=== PATIENT | female | born 1960 | race Caucasian/White ===

== ENCOUNTER 2020-04-14 15:06 | Outpatient (CLI) | payer OTHER, SELFPAY ==
--- NOTE | ~2020-04-14 | MM_ITS ---
EXAMINATION: MM screening [place] [facility] w [facility] HISTORY: Screening mammogram TECHNIQUE: Craniocaudal and mediolateral oblique 3-D tomosynthesis images were obtained and synthetic 2-D images were generated. CAD analysis was submitted and interpreted. COMPARISON: No prior mammogram is available for comparison at this institution. BREAST PARENCHYMAL COMPOSITION: There are scattered areas of fibroglandular density. FINDINGS: There is a biopsy marker on the right; history of prior benign right breast biopsy in 2018. There is no evidence of suspicious mass, calcification, or architectural distortion to suggest malig mari in either breast. There has been no suspicious interval change. IMPRESSION: 1. No mammographic evidence of malignancy. 2. Recommend routine screening mammography in one year. BI-RADS Category 2: Benign finding(s). Reviewed, dictated and finalized at location A.
== END 2020-04-14 15:07 | disposition home or self-care (01) ==
LOC: ANHIMG 15:12
PROVIDERS: PCP Family Medicine; Visit Provider Physician Assistant
DX: Z12.31 Encounter for screening mammogram for malignant neoplasm of breast (principal)
CPT/HCPCS: 77063; 77067

== ENCOUNTER 2020-08-21 10:00 | Outpatient (RCR) | payer OTHER, SELFPAY ==
--- NOTE | 2020-07-22 11:30 | PTOPEVAL ---
PHYSICAL THERAPY EVALUATION Thank you for referring Jen Pandya to [facility].? Jen was evaluated for her diagnosis of chronic cervical pain. The patient is scheduled to be seen for therapy? 2 x/week for 4 weeks. Please review, sign, date and return this plan of care CHILO. I agree with and certify that the following plan of care is medically necessary. Referring Physician Date Attending Provider: Rosmery Gentile, MD *PT Outpatient Evaluation Start: 07/22/20 09:57 Freq: Status: Active Protocol: Document 07/22/20 09:57 [facility] (Rec: 07/22/20 11:16 [facility] [id number]) Assessment Status Evaluation Evaluation Information Problem Diagnosis neck pain (chronic) Onset chronic Cause no new event Additional Evaluation Detail The patient has a hx of cervical fusion 2018 due to herniated discs/nerve impingement with pain in neck/ arms. The patient never got relief from arm pain. The patient had a CT scan later that showed bent screws. The patient never did therapy at any point. The patient has gotten worse over time so the patient saw the MD recently for the increased pain. The patient also has trouble holding onto things/drops them. Diagnostic Tests Other Tests For This Problem Yes: ct-bent screws Prior Level of Function Activity Level (Last 3 Months) Occupation on disability Hand Dominance Right Activity of Daily Living Ability Independent Indoor/Home Mobility Independent Community Mobility Independent Stairs Ability Independent Functional Cognition (Planning, Shopping Independent , Taking Medications) Cooking Yes Cleaning Yes Laundry Yes Shopping Yes Driving No Medications Home Meds (Include: OTC, RX, Vitamins, metformin, glipizide, Herbals, Dose, Route,and Frequency) pregablin, diclofenac, Query Text:Home Med Entries Will No cyclobenzaprine, atorvastatin, Longer Recall From Past Visits. Home hydrazine, amblodipine, vit. Meds Must Be Re-entered With Each Visit. D Comments Additional Prior Level of Function patient modifies tasks to Comments accomplish due to neck and arm plus back pain (chronic) Pain Assessment
--- NOTE | 2020-08-21 10:35 | PTOPEVAL ---
PHYSICAL THERAPY DISCHARGE SUMMARY Thank you for referring Jen Pandya to [facility].? The patient has been seen 8 visits for her dx of cervical pain/radiculopathy. The patient has partially met her goals and is peaked with skilled PT needs at this time. PT discontinued. Please review, sign, date and return this plan of care. I agree with and certify the following plan of care. Referring Physician Date Attending Provider: Rosmery Gentile, MD *PT Outpatient Discharge Start: 07/22/20 09:57 Freq: Status: discharge Protocol: Document 08/21/20 09:59 [facility] (Rec: 08/21/20 10:34 [facility] [id number]) Assessment Status Discharge Evaluation Information Problem Diagnosis neck pain (chronic) Onset chronic Cause no new event Additional Evaluation Detail The patient has been to therapy and reports overall, the pain is still in her neck but she is getting her strength back in her arms. The patient is doing her exercises and has no trouble with them now. The patient has less trouble holding onto things/drops them less. Pain Assessment Timing of Pain Assessment Timing of Pain Assessment Assessment Pain Scale Pain Scale Used Numeric (1 - 10) Self Report Pain Assessment Bilateral Arm(s) Reported Pain Level 0 Radicular Pain Location no current numbness but had some earlier this am Pain Frequency Intermittent Neck Reported Pain Level 8 Pain Description Burning,Sharp Pain Frequency Acute,Chronic Other Pain Description only increased pain due to overstretching per pt. Pain Aggravating Factors Lifting Pain Score Pain Score 0,8: Self Report Interventions Used Interventions Used By Clinicians Education,Electrical Stimulation,Exercise,Heat, Ultrasound Pain Relief Interventions Used By Exercise,Heat,Position Change, Patient Massage Modalities Cervical and Lumbar ROM Cervical ROM Cervical Flexion (0-60) 60 Query Text:Active in Degrees Cervical Extension (0-70) 35 Query Text:Active in Degrees Cervical Lateral Flexion Right (0-50) 55 Query Text:Active in Degrees Cervical Lateral Flexion Left (0-50) 50 Query Text:Active in Degrees Cervical Rotation Right (0-90) 60 Query Text:Active in Degrees Cervical Rotation Left (0
== END 2020-08-21 12:05 | disposition home or self-care (01) ==
LOC: ANHPT 10:00
PROVIDERS: PCP Family Medicine; Visit Provider Family Medicine
DX: M54.2 Cervicalgia (principal)
CPT/HCPCS: 97014; 97032; 97110; 97161; G0283

== ENCOUNTER 2020-11-03 08:02 | Outpatient (CLI) | payer OTHER, SELFPAY ==
--- NOTE | ~2020-11-03 | MR_ITS ---
EXAMINATION: MR cervical spine wo/w con EXAM DATE: 11/03/2020 09:43 INDICATION: History neck surgery. Neck pain going down both arms. TECHNIQUE: Multi-sequential, multiplanar MR images of the cervical spine were obtained without contra st. Axial T2, axial T2 MERGE sequence. Sagittal T1, T2, T2 fat saturation images also obtained. Axi al T1 weighted sequence. Patient was then injected with 14 mL Multihance intravenous contrast and re imaged. Postcontrast axial and sagittal T1-weighted fat saturation sequences were obtained. There ar e no prior studies for comparison. FINDINGS: There is anterior and interbody fusion C4-7. Vertebral body and disc heights are well-tiarra ntained. The spinal cord signal intensity and intrinsic morphology is normal. Cervicomedullary juncti on is normal in appearance. There are no suspicious marrow signal abnormalities. Paraspinal soft tiss ue is unremarkable. Increased signal intensity at the C3 vertebral body on postcontrast sequence is suspected to be artifactual loss of fat saturation; no signal abnormality on the precontrast T1 and T 2 sequences in this vertebral body. Level by level evaluation: C2-C3: Disc does not extend beyond the endplate margin. Uncovertebral joint arthropathy: None. Facet joint arthropathy: Moderate bilateral. Neural foraminal stenosis: No stenosis. Central canal stenosis: No stenosis. C3-C4: Disc does not extend beyond the endplate margin. Uncovertebral joint arthropathy: Mild bilateral. Facet joint arthropathy: Moderate to severe bilateral. Neural foraminal stenosis: Moderate left, mild right. Central canal stenosis: No stenosis. C4-C5: This level is fused. Uncovertebral joint arthropathy: Moderate left, mild to moderate right. Facet joint arthropathy: Mild bilateral. Neural foraminal stenosis: Moderate left, mild to moderate right. Central canal stenosis: No stenosis. C5-C6: This level is fused. Uncovertebral joint arthropathy: Moderate bilateral. Facet joint arthropathy: Mild to moderate bilateral. Neural foraminal stenosis: Mild to moderate right, mild left. Central canal stenosis: No stenosis. C6-C7: There is a mild diffuse disc bulge. Uncovertebral joint arthropathy: Moderate to severe left, moderate right. Facet joint arthropathy: Moderate bilateral. Neural foraminal stenosis: Moderate to severe left, moderate right. Central canal stenosis: Mild. C7-T1: Disc does not extend beyond the endplate margin. Uncovertebral joint arthropathy: Mild bilateral. Facet joint arthropathy: Mild bilateral. Neural foraminal stenosis: No stenosis. Central canal stenosis: No stenosis. IMPRESSION: 1. Cervical fusion C4-7. 2. Multilevel spondylosis as detailed above, with the left C6-7 and C4-5 levels the most narrowed on the exam. Reviewed, dictated and finalized at location A. IMPRESSION: 1. Cervical fusion C4-7. 2. Multilevel spondylosis as detailed above, with the left C6-7 and C4-5 level s the most narrowed on the exam.
[2020-11-03 09:03] LABS: Estimated Glomerular Filt Rate > 60
== END 2020-11-03 08:03 | disposition home or self-care (01) ==
PROVIDERS: PCP Family Medicine; Referring Provider Nurse Practitioner Family; Visit Provider Family Medicine
DX: M47.813 Spondylosis without myelopathy or radiculopathy, cervicothoracic region (principal); Z98.1 Arthrodesis status; M48.03 Spinal stenosis, cervicothoracic region
CPT/HCPCS: 72156; A9577

== ENCOUNTER 2020-12-30 08:31 | Outpatient (CLI) | payer OTHER, SELFPAY ==
--- NOTE | 2020-12-30 12:21 | NEURO_ITS ---
PATIENT NUMBER: [id number] IMPRESSION: # Complains of pain and numbness of hands # Bilateral Carpal Tunnel Syndrome of moderate severity. # Left ulnar nerve entrapment across the elbow of moderate severity and right of mild severity. # Normal needle exam. Nerve Conduction Studies Anti Sensory Summary Table Stim Site NR Peak (ms) P-T Amp (?V) Site1 Site2 Delta-P (ms) Dist (cm) Keith (m/s) Left Median Anti Sensory (2-3nd Digit) Wrist 3.6 32.6 Wrist 2-3nd Digit 3.6 14.0 39 Wrist 4.0 17.8 Wrist 2-3nd Digit 3.6 14.0 39 Right Median Anti Sensory (2-3nd Digit) Wrist 3.9 8.8 Wrist 2-3nd Digit 3.9 14.0 36 Wrist 4.3 4.6 Wrist 2-3nd Digit 3.9 14.0 36 Left Radial Anti Sensory (Base 1st Digit) Wrist 1.7 23.5 Wrist Base 1st Digit 1.7 0.0 Right Radial Anti Sensory (Base 1st Digit) Wrist 2.2 18.9 Wrist Base 1st Digit 2.2 0.0 Left Ulnar Anti Sensory (5th Digit) Wrist 2.3 17.2 Wrist 5th Digit 2.3 14.0 61 Right Ulnar Anti Sensory (5th Digit) Wrist 2.3 23.3 Wrist 5th Digit 2.3 14.0 61 Motor Summary Table Stim Site NR Onset (ms) O-P Amp (mV) Site1 Site2 Delta-0 (ms) Dist (cm) Keith (m/s) Left Median Motor (Abd Poll Brev) Wrist 5.5 1.5 Elbow Wrist 4.5 26.0 58 Elbow 10.0 1.1 Right Median Motor (Abd Poll Brev) Wrist 5.9 3.3 Elbow Wrist 5.0 27.0 54 Elbow 10.9 3.5 Left Ulnar Motor (Abd Dig Minimi) Wrist 2.0 6.8 A Elbow Wrist 5.1 25.0 49 A Elbow 7.1 2.6 B Elbow Wrist 4.7 22.0 47 B Elbow 6.7 2.0 Right Ulnar Motor (Abd Dig Minimi) Wrist 2.3 6.2 A Elbow Wrist 5.2 27.0 52 A Elbow 7.5 5.4 B Elbow Wrist 3.5 20.0 57 B Elbow 5.8 2.8 F Wave Studies NR F-Lat (ms) L-R F-Lat (ms) Left Median (Mrkrs) (Abd Poll Brev) 29.44 0.17 Right Median (Mrkrs) (Abd Poll Brev) 29.28 0.17 Left Ulnar (Mrkrs) (Abd Dig Min) 28.20 2.21 Right Ulnar (Mrkrs) (Abd Dig Min) 25.99 2.21 EMG Side Muscle Nerve Root Ins Act Fibs Amp Dur Recrt Comment Right 1stDorInt Ulnar C8-T1 Nml Nml Nml Nml Nml Right Ext Indicis Radial (Post Int) C7-8 Nml Nml Nml Nml Nml Right Ext Digitorum Radial (Post Int) C7-8 Nml Nml Nml Nml Nml Right BrachioRad Radial C5-6 Nml Nml Nml Nml Nml Right PronatorTeres Median C6-7 Nml Nml Nml Nml Nml Right Abd Poll Brev Median C8-T1 Nml Nml Nml Nml Nml Left 1stDorInt Ulnar C8-T1 Nml Nml Nml Nml Nml Left Ext Indicis Radial (Post Int) C7-8 Nml Nml Nml Nml Nml Left Ext Digitorum Radial (Post Int) C7-8 Nml Nml Nml Nml Nml Left BrachioRad Radial C5-6 Nml Nml Nml Nml Nml Left PronatorTeres Median C6-7 Nml Nml Nml Nml Nml Left Abd Poll Brev Median C8-T1 Nml Nml Nml Nml Nml MTDD
== END 2020-12-30 08:32 | disposition home or self-care (01) ==
PROVIDERS: PCP Family Medicine; Referring Provider Nurse Practitioner Family; Visit Provider Plastic Surgery
DX: R53.1 Weakness (principal); R20.0 Anesthesia of skin; M79.641 Pain in right hand; G56.03 Carpal tunnel syndrome, bilateral upper limbs; G56.22 Lesion of ulnar nerve, left upper limb
CPT/HCPCS: 95886; 95911

== ENCOUNTER 2021-03-10 09:30 | Outpatient (RCR) | payer OTHER, SELFPAY ==
--- NOTE | 2021-01-29 10:41 | PTOPEVAL ---
PHYSICAL THERAPY EVALUATION Thank you for referring Jen Pandya to [facility].? Jen was evaluated for the dx of low back pain/radiculopathy. The patient is scheduled to be seen for therapy? 2 x/week for 6 weeks. Please review, sign, date and return this plan of care CHILO. I agree with and certify that the following plan of care is medically necessary. Referring Physician Date Attending Provider: Haylee Unger, BELEN *PT Outpatient Evaluation Start: 01/29/21 09:37 Freq: Status: Active Protocol: Document 01/29/21 09:37 [facility] (Rec: 01/29/21 10:25 [facility] [id number]) Therapy Assessment Status Assessment Status Assessment Status Evaluation Evaluation Information Problem Diagnosis low back pain Onset 3 weeks ago Cause no new injury Additional Evaluation Detail The patient has had back pain for about 16 years and has had injections in the past. When the pain flared recently, she received an injection again but the relief only lasted 2 days. The patient currently has pain at the sacrum and it radiates to the hips. The pain is worse with sitting/riding in a car for length of time, walking, stairs. Diagnostic Tests X-Rays For This Problem Yes MRI For This Problem Yes: DDD/OA lumbar spine Prior Level of Function Activity Level (Last 3 Months) Occupation on disability Hand Dominance Right Activity of Daily Living Ability Independent Indoor/Home Mobility Independent Community Mobility Independent Stairs Ability Independent Functional Cognition (Planning, Shopping Independent , Taking Medications) Cooking Yes Cleaning No Laundry Yes Shopping No Driving No Home Setting Home Type Basement Apartment Environmental Barriers Railing, Bilateral,Stairs, Greater than 4 Living Situation With Relatives Support Available Local Family Support,Neighbor/ Friend Support Pain Assessment Timing of Pain Assessment Timing of Pain Assessment Assessment Pain Scale Pain Scale Used Numeric (1 - 10) Self Report Pain Assessment Left Hip(s) Reported Pain Level 0 Pain Description Sharp,Stabbing,Tender on
--- NOTE | 2021-02-22 09:36 | PCPTNOTE ---
Patient called & cancelled scheduled appointment this date due to transportation.
--- NOTE | 2021-02-26 16:06 | PCPTNOTE ---
Patient called to cancel due not having transportation.
--- NOTE | 2021-03-10 10:15 | PTOPEVAL ---
PHYSICAL THERAPY DISCHARGE Thank you for referring Jen Pandya to [facility].? The patient has completed 10 visits for the dx of low back pain. Goals are partially met. DC PT. Please review, sign, date and return this plan of care CHILO. I agree with and certify that the following plan. Referring Physician Date Attending Provider: Haylee Unger, FINISHING TECHNICIAN-BC *PT Outpatient Discharge Start: 01/29/21 09:37 Freq: Status: Active Protocol: Document 03/10/21 09:20 [facility] (Rec: 03/10/21 09:42 [facility]V [id number]) Evaluation Information Problem Diagnosis low back pain Cause no new injury Additional Evaluation Detail The patient reports feeling a little better and recently got a new prescription and her pain is much better with the new meds. The patient reports continued pain at sacral area and the exercises don't seem to help fix her pain, but she does them. The patient has an appt for the pain mgmt MD on the . The patient is also having carpal tunnel surgery on the of this month. Pain Assessment Timing of Pain Assessment Timing of Pain Assessment Assessment Pain Scale Pain Scale Used Numeric (1 - 10) Self Report Pain Assessment Left Hip(s) Reported Pain Level 3 Pain Description Aching,Soreness Pain Frequency Chronic Lower Back Reported Pain Level 4 Pain Description Aching,Soreness Radicular Pain Location into right hip Pain Frequency Chronic Pain Aggravating Factors Weight Bearing/Standing Pain Score Pain Score 3,4: Self Report Interventions Used Interventions Used By Clinicians Electrical Stimulation,Heat, Joint Mobilization,Manual Therapy Techniques Pain Relief Interventions Used By Heat,Inactivity/Rest, Patient Medication Cervical and Lumbar ROM Lumbar ROM Lumbar Flexion Active Ankle Query Text:Hands to: Lumbar Extension (0-40) 40 Query Text:Active in Degrees Lumbar Lateral Flexion Right (0-40) 35 Query Text:Active in Degrees Lumbar Lateral Flexion Left (0-40) 40 Query Text:Active in Degrees Lateral Rotation Right (0-45) 45 Query Text:Active in Degrees Lateral Rotation Left (0-45) 45 Query Text:Active in Degrees Cervical and Lumbar Muscle Testing
== END 2021-03-10 14:40 | disposition home or self-care (01) ==
LOC: ANHPT 09:30
PROVIDERS: PCP Family Medicine; Visit Provider Nurse Practitioner Family
DX: M54.5 Low back pain (principal); M54.16 Radiculopathy, lumbar region
CPT/HCPCS: 97014; 97110; 97140; 97162; G0283

== ENCOUNTER 2021-03-23 09:07 | Outpatient (CLI) | payer OTHER, SELFPAY ==
[2021-03-23 11:09] LABS: Anion Gap 9 mmol/L (8-16); Blood Urea Nitrogen 20 mg/dL (7-17); Calcium 9.6 mg/dL (8.4-10.2); Carbon Dioxide 25 mmol/L (22-30); Chloride 104 mmol/L (98-107); Estimated Glomerular Filt Rate > 60; Glucose 99 mg/dL (65-110); Potassium 3.6 mmol/L (3.4-5.0); Sodium 138 mmol/L (137-145)
== END 2021-03-23 09:08 | disposition home or self-care (01) ==
PROVIDERS: Anesthesiology; PCP Family Medicine; Visit Provider Plastic Surgery
DX: Z01.812 Encounter for preprocedural laboratory examination (principal); E11.9 Type 2 diabetes mellitus without complications
CPT/HCPCS: 36415; 80048

== ENCOUNTER 2021-03-24 00:27 | Day surgery (SDC) | payer OTHER, SELFPAY ==
[2021-03-17 17:49] VITALS: BMI 31.1
--- NOTE | 2021-03-23 13:44 | WPDANESEPPF ---
Anes - Initial Pre Proc Eval Procedure: Operation Date: 03/24/21 09:00 Proposed Procedures p Right Open Carpal Tunnel Release - Elfego Carreno MD Date/Time: 03/23/21 13:44 Surgeon: Elfego Carreno MD Pre Op Diagnosis: right carpal tunnel syndrome Patient Data Age: 61 Gender: F Height: 1.57 m Weight: 77.11 kg Allergies Allergy/AdvReac Type Severity Reaction Status Date / Time No Known Allergies Allergy Verified 03/17/21 17:54 Home Medications Medication Instructions Recorded Confirmed Type amlodipine 5 mg PO DAILY 03/17/21 03/17/21 History atorvastatin 20 mg PO DAILY 03/17/21 03/17/21 History cyclobenzaprine 10 mg PO TID PRN 03/17/21 03/17/21 History diclofenac sodium 75 mg PO BID 03/17/21 03/17/21 History empagliflozin [Jardiance] 25 mg PO DAILY 03/17/21 03/17/21 History ergocalciferol (vitamin D2) 1,250 mcg PO DAILY 03/17/21 03/17/21 History glipizide 10 mg PO BID 03/17/21 03/17/21 History hydralazine 25 mg PO DAILY 03/17/21 03/17/21 History metformin 500 mg PO BID 03/17/21 03/17/21 History pregabalin 300 mg PO BID 03/17/21 03/17/21 History tizanidine 4 mg PO DAILY 03/17/21 03/17/21 History Patient hx anesthesia problems: none Family hx anesthesia problems: none PMFSH Past Medical History Medical History (Updated 03/23/21 @ 13:45 by Kenneth Pierre DO) Diabetes type 2, controlled Hyperlipidemia Hypertension Surgical History Surgical History (Updated 03/23/21 @ 13:45 by Kenneth Pierre DO) History of cervical spinal surgery pin/plates 2017 History of tubal ligation Social History Social History Smoking packs per day: 1 Smoking cigarettes per day: 20.0 Years smoked: 48 Smoking pack-years: 48.00 Smoking status: Former smoker Tobacco type: cigarettes Last use: 01/12/21 Living arrangements: alone Spiritual care concerns: No Anes - Eval Final PreProcedure Day of Procedure 03/23/21 13:44 Patient weight: obese Heart: regular rate and rhythm Lungs: clear to auscultation and normal air movement Airway: Mallampati scale class II Neurological: alert and oriented Last oral intake: >/= 8 hours ASA classification: III Emergent: no Anesthetic plan: proceed Anesthesia type and monitoring: general GIVS and standard monitoring Informed Consent: The patient's anesthetic plan and its attendant risks and benefits were discussed with the patient/family/POA. Questions were solicited and answers provided to the satisfaction of the patient/family/POA.
[2021-03-24] MEDS: LACTATED RINGERS 1,000 ML 30 ML IV CONT ×2 (07:50→09:05)
[2021-03-24 08:00] LABS: Glucose Point of Care 110 mg/dl (65-105)
[2021-03-24 08:23] VITALS: BP 108/71; PULSE 57; RESP 20; TEMP 36.3; O2SAT 100
--- NOTE | 2021-03-24 08:32 | WPDHPUPDATE1 ---
History and Physical Update Update Date/Time: 03/24/21 08:32 History and Physical has been reviewed, including an updated exam of the patient. There are NO changes in the patient's condition. Risks, benefits, and alternatives have been discussed and questions answered. Patient agrees to proceed with procedure.
[2021-03-24] MEDS: KETOROLAC 15 MG/ML VIAL (*BKC) IV PUSH (08:45)
[2021-03-24] MEDS: LIDO 1%/EPINEPHRINE/PF 1:200,000 30 ML VIAL 4 ML XX (08:53)
[2021-03-24] MEDS: BACITRACIN/POLYMYXIN B OINT 15 GM TUBE 1 APPLIC TOPICAL (09:00)
[2021-03-24 09:05] VITALS: BP 92/59; PULSE 64; RESP 16; O2SAT 96
[2021-03-24 09:14] LABS: Glucose Point of Care 117 mg/dl (65-105)
--- NOTE | 2021-03-24 09:20 | W.PM.PROC2 ---
Procedure Note - Detailed Date of Procedure 03/24/21 Pre-op Diagnosis right carpal tunnel syndrome Post-op Diagnosis same Procedure Performed Right open carpal tunnel release Surgeon Elfego Carreno MD Anesthesia MAC Indications Right carpal tunnel syndrome failing conservative treatment Description of Procedure The site was marked on the patient's wrist in the holding area. She was taken to the operating room and placed supine on the operating table. A time-out was held and confirmed she was given IV sedation. The extremity was prepped and draped in usual fashion. The site was remarked and infiltrated locally with 1% lidocaine with epinephrine. The tourniquet was inflated to 250 mmHg. Incision was made as marked and dissection was carried bluntly through the subcutaneous tissue to the palmar aponeurosis. This and the carpal ligament were incised with a 15. Blade. Under 3 point retraction the ligament was divided distally and proximally to completely release it. The skin wound was closed with interrupted 5 0 nylon. There was no unusual anatomy noted. She is discharged in stable condition with a prescription for hydrocodone 5/325 number 8 Estimated Blood Loss 0 Tourniquet Time 5 Drains No Packing No Pathology none sent Complications No immediate complications Condition stable Disposition same day
[2021-03-24 09:30] VITALS: BP 90/62; PULSE 60; RESP 16; O2SAT 97
[2021-03-24 09:56] VITALS: BP 113/65; PULSE 54; RESP 16
--- NOTE | 2021-03-24 09:58 | SUR.PHASEII ---
[facility] CALLED FOR PATIENT.
--- NOTE | 2021-03-24 10:25 | SUR.PHASEII ---
[facility] HERE TO TRANSPORT PATIENT HOME.
== END 2021-03-24 10:25 | disposition home or self-care (01) ==
PROVIDERS: PCP Family Medicine; Visit Provider Plastic Surgery
PROC: (CPT 64721; principal; 2021-03-24 09:00)
DX: G56.01 Carpal tunnel syndrome, right upper limb (principal); E11.9 Type 2 diabetes mellitus without complications; Z79.84 Long term (current) use of oral hypoglycemic drugs; I10 Essential (primary) hypertension; E78.5 Hyperlipidemia, unspecified; Z87.891 Personal history of nicotine dependence
CPT/HCPCS: 64721; 82948; A9270; J0131; J1100; J1885; J2250; J2405; J2704; J3010; J7120

== ENCOUNTER 2021-04-16 07:56 | Outpatient (CLI) | payer OTHER, SELFPAY ==
--- NOTE | ~2021-04-16 | MR_ITS ---
EXAMINATION: MR lumbar spine wo [facility] EXAM DATE: 04/16/2021 08:34 INDICATION: Lumbar radiculopathy. TECHNIQUE: Multi-sequential, multiplanar MR images of the lumbar spine were obtained without contrast . Sagittal T1, T2, T2 fat saturation images. Axial T2 weighted images. There is no prior study for comparison. FINDINGS: There is moderate disc disease at L5-S1. The vertebral body and disc heights are otherwise well maintained. The vertebral bodies are aligned in the AP dimension. The conus medullaris terminate s at the L1/2 level and has normal signal intensity and morphology. There are scattered focal signal abnormalities consistent with hemangiomata, otherwise without focal suspicious marrow signal abnorma lities. Level by level evaluation: T12-L1: There is a mild diffuse disc bulge. Facet arthropathy: Mild bilateral. Neural foraminal stenosis: No stenosis. Central canal stenosis: No stenosis. L1-L2: Disc does not extend beyond the endplate margin. Facet arthropathy: Mild bilateral. Neural foraminal stenosis: No stenosis. Central canal stenosis: No stenosis. L2-L3: There is a minimal diffuse disc bulge. Facet arthropathy: Mild to moderate bilateral. Neural foraminal stenosis: No stenosis. Central canal stenosis: No stenosis. L3-L4: There is a mild to moderate diffuse disc bulge. Facet arthropathy: Mild to moderate right, mild left. Neural foraminal stenosis: Mild bilateral. Central canal stenosis: Mild. L4-L5: There is a mild to moderate diffuse disc bulge. Facet arthropathy: Moderate to severe bilateral. Ligamentum flavum enlargement. Neural foraminal stenosis: Mild to moderate right, mild left. Central canal stenosis: Moderate. L5-S1: There is a moderate diffuse disc bulge. Facet arthropathy: Moderate bilateral. Neural foraminal stenosis: Moderate bilateral, right greater than left. Central canal stenosis: Mild to moderate. IMPRESSION: 1. Up to moderate lower lumbar spondylosis. Reviewed, dictated and finalized at location B.
== END 2021-04-16 07:57 | disposition home or self-care (01) ==
PROVIDERS: PCP Family Medicine; Visit Provider Nurse Practitioner Family
DX: M47.26 Other spondylosis with radiculopathy, lumbar region (principal); M54.5 Low back pain
CPT/HCPCS: 72148

== ENCOUNTER 2021-05-27 00:17 | Day surgery (SDC) | payer OTHER, SELFPAY ==
[2021-05-06 15:29] VITALS: BMI 27.4
--- NOTE | 2021-05-13 06:42 | WPDHPUPDATE1 ---
History and Physical Update Update Date/Time: 05/13/21 06:42 History and Physical has been reviewed, including an updated exam of the patient. There are NO changes in the patient's condition. Risks, benefits, and alternatives have been discussed and questions answered. Patient agrees to proceed with procedure.
--- NOTE | 2021-05-20 11:30 | PC.NURSE ---
Pt states no changes in medications or health history since initial interview. New pre-op instructions reviewed with pt. Pt denies any questions at this time.
--- NOTE | 2021-05-27 09:42 | WPDHPUPDATE1 ---
History and Physical Update Update Date/Time: 05/27/21 09:42 History and Physical has been reviewed, including an updated exam of the patient. There are NO changes in the patient's condition. Risks, benefits, and alternatives have been discussed and questions answered. Patient agrees to proceed with procedure.
[2021-05-27 12:05] VITALS: BP 131/87; PULSE 73; RESP 14; TEMP 36.8; O2SAT 99
--- NOTE | 2021-05-27 12:10 | SUR.PREOP ---
1210- Patient reported she had a small hashbrown this morning at 0800 and coffee with sugar at 0600. Reported to Dr. Acharya patient having eaten hashbrown and coffee this AM. Per Dr. Achraya can proceed with procedure scheduled for 1500.
[2021-05-27 12:39] VITALS: BMI 28.0
[2021-05-27] MEDS: LACTATED RINGERS 1,000 ML 30 ML IV CONT (13:10)
[2021-05-27 13:28] LABS: Glucose Point of Care 111 mg/dl (65-105)
--- NOTE | 2021-05-27 14:00 | P.PNAN_ITS ---
Anes - Initial Pre Proc Eval Procedure: Operation Date: 05/27/21 15:00 Proposed Procedures p Right Cubital Tunnel Release - Elfego Carreno MD Date/Time: 05/27/21 14:00 Surgeon: Elfego Carreno MD Pre Op Diagnosis: right ulnar neuropathy Patient Data Age: 61 Gender: F Height: 1.57 m Weight: 69.5 kg Last Vital Signs Temp 98.2 F 05/27/21 12:05 Pulse 73 05/27/21 12:05 Resp 14 05/27/21 12:05 BP 131/87 05/27/21 12:05 Pulse Ox 99 05/27/21 12:05 Allergies Allergy/AdvReac Type Severity Reaction Status Date / Time No Known Allergies Allergy Verified 05/27/21 12:30 Home Medications Medication Instructions Recorded Confirmed Type Jardiance 25 mg PO DAILY 03/17/21 05/20/21 History amlodipine 5 mg PO DAILY 03/17/21 05/27/21 History atorvastatin 20 mg PO DAILY 03/17/21 05/20/21 History cyclobenzaprine 10 mg PO TID PRN 03/17/21 05/20/21 History diclofenac sodium 75 mg PO BID 03/17/21 05/20/21 History ergocalciferol (vitamin D2) 1,250 mcg PO WEEKLY 03/17/21 05/27/21 History glipizide 10 mg PO BID 03/17/21 05/20/21 History hydralazine 25 mg PO DAILY 03/17/21 05/20/21 History metformin 500 mg PO BID 03/17/21 05/20/21 History pregabalin 300 mg PO BID 03/17/21 05/27/21 History tizanidine 4 mg PO DAILY 03/17/21 05/20/21 History Laboratory Tests 05/27/21 13:25 POC Capillary Glucose 111 mg/dl H mg/dl (65-105) Patient hx anesthesia problems: none Family hx anesthesia problems: none Results Review: All pre-operative results and documents have been reviewed as part of the pre-operative evaluation. [facility] Past Medical History Medical History (Updated 03/23/21 @ 13:45 by Kenneth Pierre DO) Diabetes type 2, controlled Hyperlipidemia Hypertension Surgical History Surgical History (Updated 03/23/21 @ 13:45 by Kenneth Pierre DO) History of cervical spinal surgery pin/plates 2017 History of tubal ligation Social History Social History Smoking packs per day: 1.25 Smoking cigarettes per day: 25.0 Years smoked: 47 Smoking pack-years: 58.75 Smoking status: Former smoker Tobacco type: cigarettes Smoking end date: 01/12/21 Alcohol intake: never Substance use: never Substance use type: does not use Last use: 01/12/21 Living arrangements: alone Spiritual care concerns: No Anes - Eval Final PreProcedure Day of Procedure 05/27/21 14:00 Patient weight: overweight Heart: regular rate and rhythm Lungs: clear to auscultation Airway: Mallampati scale class II Neurological: alert and oriented Last oral intake: >/= 8 hours ASA classification: III Emergent: no Anesthetic plan: proceed Anesthesia type and monitoring: general GIVS and standard monitoring Results Review: All pre-operative results and documents have been reviewed as part of the pre-operative evaluation. Informed Consent: The patient's anesthetic plan and its attendant risks and benefits were discussed with the patient/family/POA. Questions were solicited and answers provided to the satisfaction of the patient/family/POA.
[2021-05-27] MEDS: LIDO 1%/EPINEPHRINE 1:100,000 50 ML VIAL INFILTRATE (15:39)
[2021-05-27 15:56] VITALS: BP 125/80; PULSE 70; RESP 20; O2SAT 93
--- NOTE | 2021-05-27 15:56 | P.OP_ITS ---
Procedure Note - Detailed Date of Procedure 05/27/21 Pre-op Diagnosis right ulnar neuropathy Post-op Diagnosis same Procedure Performed Right ulnar neuroplasty at the elbow Surgeon Elfego Carreno MD [employer] [facility] Description of Procedure The left cubital tunnel was marked on the patient in the holding area. She was taken to the operating room where she was placed supine on the operating table. Time-out was held and confirmed. Extremity was prepped and draped in usual fashion. She was given general IV sedation. The site was marked and locally infiltrated with 1% lidocaine with epinephrine. The extremity was exsanguinated and the tourniquet inflated 250 mmHg. The elbow was flexed and was supported on folded towels. The incision was made as marked and dissection was carried through the subcutaneous tissue to the deep fascia. The ulnar nerve was identified just anterior to the triceps muscle. It appeared to be somewhat constricted proximally from the fascia overlying the muscle and particularly constricted through Snowden's ligament. The nerve was identified proximally and dissected distally completely freeing it. This nerve did not sublux at all. The wound was closed with intradermal 3-0 Monocryl and cross hatched yeung and running intradermal 3-0 Monocryl to close the skin. The usual bandage was applied. The tourniquet was released. The patient is discharged home in stable condition. A prescription for Hydrocodone 9. Was sent to her pharmacy. Estimated Blood Loss 2 Drains No Packing No Pathology none sent Complications No immediate complications Condition stable Disposition same day
[2021-05-27 16:30] VITALS: BP 137/75; PULSE 67; RESP 20; O2SAT 98
== END 2021-05-27 16:50 | disposition home or self-care (01) ==
PROVIDERS: PCP Family Medicine; Visit Provider Plastic Surgery
PROC: (CPT 64718; principal; 2021-05-27 15:00)
DX: G56.21 Lesion of ulnar nerve, right upper limb (principal); I10 Essential (primary) hypertension; E11.9 Type 2 diabetes mellitus without complications; Z79.84 Long term (current) use of oral hypoglycemic drugs; E78.5 Hyperlipidemia, unspecified; Z87.891 Personal history of nicotine dependence
CPT/HCPCS: 64718; 82948; A9270; J2250; J2704; J3010; J7120

== ENCOUNTER 2021-07-15 02:32 | Day surgery (SDC) | payer OTHER, SELFPAY ==
[2021-07-07 12:05] VITALS: BMI 28.0
--- NOTE | 2021-07-07 12:12 | PC.NURSE ---
Report to the Outpatient Waiting Room, entrance under the green pavilion located off [facility], at time 1000 on date 07/15/21. OR Time: 1200. - You and your visitor will be asked a series of questions to screen for COVID 19 for your protection. - A mask is required within the hospital. - Only one visitor is allowed at this time. Patient visitors will be guided where to wait when not with patient. Preoperative COVID Testing Requirements: No COVID Test needed if: (proof is required; if not received patient will have Rapid Test prior to entry) - Patient has received COVID Vaccine at least 14 days prior to procedure date or - Patient has positive COVID test result within last 90 days of surgery date. COVID Test needed if above criteria is not met If not COVID vaccinated a COVID test must be conducted within 72 hours of surgery and patient is asked to isolate self from time of testing until procedure. You will go to the [facility] for your COVID testing. The [facility] is located at the corner of [address] [facility]. You will only be called if COVID results are positive and your surgeon may reschedule your elective surgery date. Patients may have clear liquids (water, carbonated beverages, clear teas, apple juice) until 3 hours prior to surgery with a maximum of 20 ounces. - No food from midnight until time of surgery - Infants may have breast milk until 4 hours before surgery, infant formula 6 hours prior to surgery. - Children will be allowed to drink immediately following surgery. If applicable, please bring a bottle or sippy cup to assist with drinking. Juice, water, soda, and popsicles are readily available. For infants on formula, please bring formula the day of surgery. Pacifiers are allowed. Take the following medications with a SIP of water the morning of surgery: AMLODIPINE, PREGABALIN Medications to discontinue per physician: VITAMINS/SUPPLEMENTS Date to take last dose: 07/11/21 Please no make-up, nail indian, hairspray, perfume, deodorant, or body powder the day of surgery. No jewelry (including any body piercings) or valuables the day of surgery, leave them at home. Please take a shower or bath the night before, or the morning of, surgery with an antibacterial soap. Wear comfortable, loose fitting clothing. Children are encouraged to wear pajamas. - Jewelry must be removed prior to entering the operating room. Rings and piercings that are not removed may be cut off. - The hospital will not accept responsibility for valuables. - Please leave all valuables, including medications, at home the day of surgery. If you are going home after surgery, a licensed speedboat driver must drive you home. - NO public transportation without another adult. - We recommend that an adult stay with you for 24 hours following discharge. - We also recommend that you do not drive, make important decision, drink alcoholic beverages, or take any drugs that were not prescribed by your health care provider for at least 24 hours after your discharge time. For Pediatric surgeries, we recommend two adults accompany the child home (only one inside the building at this time). Follow any additional instructions given to you from your surgeon. Telephone instructions given to TENISHA WINTER and asked if any additional questions and then verbalized understanding. Patient advised to call surgeon office or pre surgery nurse liaison [phone] if any additional questions.
--- NOTE | 2021-07-15 07:14 | WPDHPUPDATE1 ---
History and Physical Update Update Date/Time: 07/15/21 07:14 History and Physical has been reviewed, including an updated exam of the patient. There are NO changes in the patient's condition. Risks, benefits, and alternatives have been discussed and questions answered. Patient agrees to proceed with procedure.
--- NOTE | 2021-07-15 10:40 | P.PNAN_ITS ---
Anes - Initial Pre Proc Eval Procedure: Operation Date: 07/15/21 12:00 Proposed Procedures p Left Open Carpal Tunnel Release - Elfego Carreno MD Date/Time: 07/15/21 10:40 Surgeon: Elfego Carreno MD Pre Op Diagnosis: Lt Carpal Tunnel Syndrome Patient Data Age: 61 Gender: F Height: 1.57 m Weight: 69.5 kg Allergies Allergy/AdvReac Type Severity Reaction Status Date / Time No Known Allergies Allergy Verified 07/15/21 10:17 Home Medications Medication Instructions Recorded Confirmed Type Jardiance 25 mg PO DAILY 03/17/21 07/15/21 History amlodipine 5 mg PO DAILY 03/17/21 07/15/21 History atorvastatin 20 mg PO DAILY 03/17/21 07/15/21 History cyclobenzaprine 10 mg PO TID PRN 03/17/21 07/15/21 History diclofenac sodium 75 mg PO BID 03/17/21 07/15/21 History ergocalciferol (vitamin D2) 1,250 mcg PO WEEKLY 03/17/21 07/15/21 History glipizide 10 mg PO BID 03/17/21 07/15/21 History hydralazine 25 mg PO DAILY 03/17/21 07/15/21 History metformin 500 mg PO BID 03/17/21 07/15/21 History pregabalin 300 mg PO BID 03/17/21 07/15/21 History Patient hx anesthesia problems: none Family hx anesthesia problems: none Results Review: All pre-operative results and documents have been reviewed as part of the pre-operative evaluation. [facility] Past Medical History Medical History (Updated 07/15/21 @ 10:40 by Bryce Clemens MD) Diabetes type 2, controlled Hyperlipidemia Hypertension Overweight Surgical History Surgical History History of cervical spinal surgery pin/plates 2017 History of tubal ligation Social History Social History Smoking packs per day: 1.25 Smoking cigarettes per day: 25.0 Years smoked: 47 Smoking pack-years: 58.75 Smoking status: Former smoker Tobacco type: cigarettes Smoking end date: 01/12/21 Additional smoking assessment comments: PT STATES STARTED SMOKING A COUPLE CIGARETTES A DAY DUE TO STRESS Alcohol intake: never Substance use: never Substance use type: does not use Last use: 01/12/21 Living arrangements: alone Spiritual care concerns: No Anes - Eval Final PreProcedure Day of Procedure 07/15/21 10:40 Patient weight: overweight Heart: regular rate and rhythm Lungs: clear to auscultation Airway: Mallampati scale class II Neurological: alert and oriented Last oral intake: >/= 8 hours ASA classification: III Emergent: no Anesthetic plan: proceed Anesthesia type and monitoring: general GIVS and standard monitoring Results Review: All pre-operative results and documents have been reviewed as part of the pre-operative evaluation. Informed Consent: The patient's anesthetic plan and its attendant risks and benefits were discussed with the patient/family/POA. Questions were solicited and answers provided to the satisfaction of the patient/family/POA.
[2021-07-15] MEDS: LACTATED RINGERS 1,000 ML 30 ML IV CONT (10:50)
[2021-07-15 10:53] LABS: Glucose Point of Care 129 mg/dl (65-105)
[2021-07-15 11:03] VITALS: BP 111/70; PULSE 76; TEMP 36.6; O2SAT 100
[2021-07-15 11:08] LABS: Anion Gap 5 mmol/L (8-16); Blood Urea Nitrogen 15 mg/dL (7-17); Calcium 9.4 mg/dL (8.4-10.2); Carbon Dioxide 25 mmol/L (22-30); Chloride 106 mmol/L (98-107); Estimated CRCL calculation 61 ml/min; Estimated Glomerular Filt Rate > 60; Glucose 140 mg/dL (65-110); Potassium 4.2 mmol/L (3.4-5.0); Sodium 136 mmol/L (137-145)
[2021-07-15] MEDS: LIDO 1%/EPINEPHRINE/PF 1:200,000 30 ML VIAL 5 ML XX (11:47)
[2021-07-15] MEDS: KETOROLAC 30 MG/ML VIAL (*BKC) IV PUSH (11:48)
[2021-07-15 11:53] VITALS: BP 95/60; PULSE 64; RESP 16; TEMP 36.6; O2SAT 99
--- NOTE | 2021-07-15 11:57 | W.PM.PROC2 ---
Procedure Note - Detailed Date of Procedure 07/15/21 Pre-op Diagnosis Lt Carpal Tunnel Syndrome Post-op Diagnosis same Procedure Performed Left open carpal tunnel release Surgeon Elfego Carreno MD Anesthesia MAC Description of Procedure The left volar wrist site was marked on the patient waiting in the holding area. She was taken to the operating room she was placed supine on the operating table. Time-out was held and confirmed. The site was marked and locally infiltrated with 1% lidocaine with epinephrine she was given IV sedation. The extremity was elevated and the tourniquet inflated to 250 mmHg. The incision was made as marked in the palm and dissection was carried bluntly through the subcutaneous tissue to the palmar aponeurosis. That and the transverse retinaculum were incised with a 15 blade opening the canal. Under 3 point retraction the ligament was divided distally and proximally with knife and scissors. No unusual anatomy noted. The wound closed with interrupted 5 0 nylon suture on the usual bandage with Romel wrap was applied patient is discharged with instructions care and follow-up prescription for hydrocodone 5325 7. Estimated Blood Loss 0 Tourniquet Time 3 Drains No Packing No Pathology none sent Complications No immediate complications Condition stable Disposition same day
[2021-07-15 12:00] VITALS: BP 99/61; PULSE 67; RESP 16; O2SAT 93
[2021-07-15 12:08] LABS: Glucose Point of Care 129 mg/dl (65-105)
[2021-07-15 12:15] VITALS: BP 101/62; PULSE 61; RESP 14; O2SAT 94
[2021-07-15 12:45] VITALS: BP 99/63; PULSE 67; RESP 14; O2SAT 95
--- NOTE | 2021-07-15 13:33 | SUR.PHASEII ---
1300 pt has met discharge criteria and is waiting for her ride to come pick her up. breathing even and unlabored. pt in NAD and denies any needs at this time.
--- NOTE | 2021-07-15 13:53 | SUR.PHASEII ---
PT WAS IN NAD AND BREATHING EVEN AND UNLABORED UPON DISCHARGE.
== END 2021-07-15 13:52 | disposition home or self-care (01) ==
PROVIDERS: PCP Physician Assistant; Visit Provider Plastic Surgery
PROC: (CPT 64721; principal; 2021-07-15 12:00)
DX: G56.02 Carpal tunnel syndrome, left upper limb (principal); I10 Essential (primary) hypertension; E11.9 Type 2 diabetes mellitus without complications; E78.5 Hyperlipidemia, unspecified; Z79.84 Long term (current) use of oral hypoglycemic drugs; Z87.891 Personal history of nicotine dependence
CPT/HCPCS: 64721; 36415; 80048; 82948; A9270; J1100; J1885; J2250; J2405; J2704; J3010; J7120

== ENCOUNTER 2021-08-25 01:29 | Day surgery (SDC) | payer OTHER, SELFPAY ==
[2021-08-20 14:21] VITALS: BMI 29.2
--- NOTE | 2021-08-20 14:32 | PC.NURSE ---
Report to the Outpatient Waiting Room, entrance under the green pavilion located off [facility], at time _0630 on date __08/25/2021 . OR Time: . - You and your visitor will be asked a series of questions to screen for COVID 19 for your protection. - A mask is required within the hospital. - Only one visitor is allowed at this time. Patient visitors will be guided where to wait when not with patient. NO VISITORS Preoperative COVID Testing Requirements: No COVID Test needed if: (proof is required; if not received patient will have Rapid Test prior to entry) - Patient has received COVID Vaccine at least 14 days prior to procedure date or - Patient has positive COVID test result within last 90 days of surgery date. COVID Test needed if above criteria is not met If not COVID vaccinated a COVID test must be conducted within 72 hours of surgery and patient is asked to isolate self from time of testing until procedure. You will go to the [employer] [facility] for your COVID testing. The [employer] [facility] is located at the corner of [address] [facility]. You will only be called if COVID results are positive and your surgeon may reschedule your elective surgery date. Patients may have clear liquids (water, carbonated beverages, clear teas, apple juice) until 3 hours prior to surgery with a maximum of 20 ounces. - No food from midnight until time of surgery - Infants may have breast milk until 4 hours before surgery, formula 6 hours prior to surgery. - Children will be allowed to drink immediately following surgery. If applicable, please bring a bottle or sippy cup to assist with drinking. Juice, water, soda, and popsicles are readily available. For infants on formula, please bring formula the day of surgery. Pacifiers are allowed. Take the following medications with a SIP of water the morning of surgery: ___AMLODIPINE/DICLOFENAC/PREGABALIN Medications to discontinue per physician ___VITAMINS/SUPPLEMENTS FOR 3 DAYS Date to take last dose Please no make-up, nail luxembourger, hairspray, perfume, deodorant, or body powder the day of surgery. No jewelry (including any body piercings) or valuables the day of surgery, leave them at home. Please take a shower or bath the night before, or the morning of, surgery with an antibacterial soap. Wear comfortable, loose fitting clothing. Children are encouraged to wear pajamas. - Jewelry must be removed prior to entering the operating room. Rings and piercings that are not removed may be cut off. - The hospital will not accept responsibility for valuables. - Please leave all valuables, including medications, at home the day of surgery. If you are going home after surgery, a licensed highway truck driver must drive you home. - NO public transportation without another adult. - We recommend that an adult stay with you for 24 hours following discharge. - We also recommend that you do not drive, make important decision, drink alcoholic beverages, or take any drugs that were not prescribed by your health care provider for at least 24 hours after your discharge time. For Pediatric surgeries, we recommend two adults accompany the child home (only one inside the building at this time). Follow any additional instructions given to you from your surgeon. Telephone instructions given to ___patient and asked if any additional questions and then verbalized understanding. Patient advised to call surgeon office or pre surgery nurse liaison [phone] if any additional questions.
[2021-08-25 06:55] VITALS: BMI 28.4
[2021-08-25 07:15] LABS: Glucose Point of Care 117 mg/dl (65-105)
--- NOTE | 2021-08-25 07:23 | WPDHPUPDATE1 ---
History and Physical Update Update Date/Time: 08/25/21 07:23 History and Physical has been reviewed, including an updated exam of the patient. There are NO changes in the patient's condition. Risks, benefits, and alternatives have been discussed and questions answered. Patient agrees to proceed with procedure.
--- NOTE | 2021-08-25 07:23 | SUR.PREOP ---
0715; DR DASILVA HERE, NOTIFIED OF PT SLIPPING AT HOME AND HIT HER PREVIOUS INCISION TO RT ELBOW. OPEN WOUND WITH BANDAIDS AND BLOODY.
--- NOTE | 2021-08-25 08:03 | WPDANESEPPF ---
Anes - Initial Pre Proc Eval Procedure: Operation Date: 08/25/21 08:30 Proposed Procedures p Left Ulnar Neuroplasty at the Elbow - Elfego Carreno MD Date/Time: 08/25/21 08:04 Surgeon: Elfego Carreno MD Pre Op Diagnosis: Left cubital tunnel syndrome Patient Data Age: 61 Gender: F Height: 1.57 m Weight: 70.6 kg Allergies Allergy/AdvReac Type Severity Reaction Status Date / Time No Known Allergies Allergy Verified 08/25/21 07:01 Home Medications Medication Instructions Recorded Confirmed Type Jardiance 25 mg PO DAILY 03/17/21 08/25/21 History amlodipine 5 mg PO DAILY 03/17/21 08/25/21 History atorvastatin 20 mg PO DAILY 03/17/21 08/25/21 History cyclobenzaprine 10 mg PO TID PRN 03/17/21 08/25/21 History diclofenac sodium 75 mg PO BID 03/17/21 08/25/21 History ergocalciferol (vitamin D2) 1,250 mcg PO WEEKLY 03/17/21 08/20/21 History glipizide 10 mg PO BID 03/17/21 08/25/21 History hydralazine 25 mg PO DAILY 03/17/21 08/25/21 History pregabalin 300 mg PO BID 03/17/21 08/25/21 History Laboratory Tests 08/25/21 07:12 POC Capillary Glucose 117 mg/dl H mg/dl (65-105) Patient hx anesthesia problems: none Family hx anesthesia problems: none Results Review: All pre-operative results and documents have been reviewed as part of the pre-operative evaluation. [facility] Past Medical History Medical History (Updated 08/25/21 @ 08:04 by Baudilio Salmon MD) Chronic pain syndrome Diabetes type 2, controlled Hyperlipidemia Hypertension Overweight Surgical History Surgical History History of cervical spinal surgery pin/plates 2017 History of tubal ligation Social History Social History Smoking packs per day: 0.25 Smoking cigarettes per day: 5.0 Years smoked: 47 Smoking pack-years: 11.75 Smoking status: Current every day smoker Tobacco type: cigarettes Additional smoking assessment comments: PT STATES STARTED SMOKING A COUPLE CIGARETTES A DAY DUE TO STRESS Alcohol intake: former Substance use: never Substance use type: does not use Last use: 08/20/2021 Living arrangements: alone Spiritual care concerns: No Anes - Eval Final PreProcedure Day of Procedure 08/25/21 08:04 Patient weight: overweight Heart: regular rate and rhythm Lungs: decreased breath sounds Airway: Mallampati scale class III Neurological: alert and oriented Last oral intake: >/= 8 hours ASA classification: III Emergent: no Anesthetic plan: proceed Anesthesia type and monitoring: general LMA and standard monitoring Results Review: All pre-operative results and documents have been reviewed as part of the pre-operative evaluation. Informed Consent: The patient's anesthetic plan and its attendant risks and benefits were discussed with the patient/family/POA. Questions were solicited and answers provided to the satisfaction of the patient/family/POA.
[2021-08-25] MEDS: LACTATED RINGERS 1,000 ML 30 ML IV CONT (08:13)
[2021-08-25] MEDS: LIDO 1%/EPINEPHRINE/PF 1:200,000 30 ML VIAL INFILTRATE (09:13)
[2021-08-25] MEDS: BACITRACIN OINTMENT 15 GM TUBE 1 APPLIC TOPICAL (09:13)
[2021-08-25 09:19] VITALS: BP 91/54; PULSE 61; RESP 16; O2SAT 93
[2021-08-25 09:24] LABS: Glucose Point of Care 134 mg/dl (65-105)
--- NOTE | 2021-08-25 09:41 | P.OP_ITS ---
Procedure Note - Detailed Date of Procedure 08/25/21 Pre-op Diagnosis Left cubital tunnel syndrome Post-op Diagnosis same Procedure Performed Left ulnar neuroplasty at the elbow Surgeon Elfego Carreno MD Certified [employer] [facility] Description of Procedure A marking was placed on the left medial elbow in the holding area. The patient was then taken to the operating room and placed supine the operating table. A time-out was held and confirmed. The site was carefully marked for the incision with cross hatching. This area was infiltrated with 1% lidocaine with epinephrine. The extremity was prepped and draped in the usual fashion the tourniquet was inflated to 250 mmHg. The incision was made as marked and the skin flaps elevated. The ulnar nerve was easily identified proximal to the medial epicondyle sitting anterior to the triceps muscle. The sheath was opened and dissection proceeded uneventfully well into the flexor muscle mass. The nerve did not sublux on flexion and extension. There were no apparent complications. A few points were electrocoagulated the wound was closed with intradermal 3-0 Monocryl sutures at the cross haines yeung. The skin was closed with a running intradermal 3-0 Monocryl. The usual bandage was applied the tourniquet was released. She is discharge instructions in wound care and follow-up. She has a prescription for hydrocodone 5/325 number 7 Estimated Blood Loss 1 Drains No Packing No Pathology none sent Complications No immediate complications Condition stable Disposition same day
[2021-08-25 09:45] VITALS: BP 96/60; PULSE 61; RESP 20
[2021-08-25 10:15] VITALS: BP 106/62; PULSE 62; RESP 20
[2021-08-25 10:40] VITALS: BP 100/59; PULSE 62; RESP 20
== END 2021-08-25 11:22 | disposition home or self-care (01) ==
PROVIDERS: PCP Physician Assistant; Visit Provider Plastic Surgery
PROC: (CPT 64718; principal; 2021-08-25 08:30)
DX: G56.22 Lesion of ulnar nerve, left upper limb (principal); E11.9 Type 2 diabetes mellitus without complications; E78.5 Hyperlipidemia, unspecified; I10 Essential (primary) hypertension; G89.4 Chronic pain syndrome; Z79.84 Long term (current) use of oral hypoglycemic drugs; F17.210 Nicotine dependence, cigarettes, uncomplicated
CPT/HCPCS: 64718; 82948; A9270; J1100; J2250; J2405; J2704; J3010; J7120

== ENCOUNTER 2022-01-14 04:01 | Day surgery (SDC) | payer OTHER, SELFPAY ==
[2021-12-28 14:03] VITALS: BMI 30.2
--- NOTE | 2022-01-13 08:53 | SUR.PREOP ---
Patient arriving and being transported home after procedure vis [facility]. I called company spoke with Angel a public utilities sales representative for the company and he assured me the motor driver would make sure the patient got into the house safely before driving away. We will also follow up with the motor driver the day of the procedure.
--- NOTE | 2022-01-13 15:08 | WPDANESEPPF ---
Anes - Initial Pre Proc Eval Procedure: Operation Date: 01/14/22 08:30 Proposed Procedures p Esophagogastroduodenoscopy - Paresh Peterson MD Date/Time: 01/13/22 15:08 Surgeon: Paresh Peterson MD Pre Op Diagnosis: dysphagia Patient Data Age: 61 Gender: F Height: 1.57 m Weight: 75 kg Allergies Allergy/AdvReac Type Severity Reaction Status Date / Time No Known Allergies Allergy Verified 01/14/22 07:18 Home Medications Medication Instructions Recorded Confirmed Type amlodipine 5 mg tablet 5 mg PO DAILY 03/17/21 12/28/21 History atorvastatin 20 mg tablet 40 mg PO DAILY 03/17/21 12/28/21 History cyclobenzaprine 10 mg tablet 10 mg PO TID PRN Pain 03/17/21 12/28/21 History diclofenac sodium 75 mg 75 mg PO BID 03/17/21 12/28/21 History tablet,delayed release empagliflozin 25 mg tablet 25 mg PO DAILY 03/17/21 12/28/21 History (Jardiance) glipizide 10 mg tablet 10 mg PO BID 03/17/21 12/28/21 History hydralazine 25 mg tablet 25 mg PO DAILY 03/17/21 12/28/21 History pregabalin 300 mg capsule 300 mg PO BID 03/17/21 12/28/21 History hydrocodone 5 mg-acetaminophen 325 1 tablet PO Q6H PRN pain #7 tabs 08/25/21 12/28/21 Rx mg tablet Patient hx anesthesia problems: none Family hx anesthesia problems: none Results Review: All pre-operative results and documents have been reviewed as part of the pre-operative evaluation. [facility] Past Medical History Medical History (Updated 01/14/22 @ 07:48 by Paresh Peterson MD) Chronic pain syndrome Diabetes type 2, controlled Hyperlipidemia Hypertension Obesity Overweight Surgical History Surgical History History of cervical spinal surgery pin/plates 2017 History of tubal ligation Social History Social History Smoking packs per day: 0.25 Smoking cigarettes per day: 5.0 Years smoked: 45 Smoking pack-years: 11.25 Smoking status: Former smoker Tobacco type: cigarettes Additional smoking assessment comments: PT STATES STARTED SMOKING A COUPLE CIGARETTES A DAY DUE TO STRESS Alcohol intake: never Substance use: never Substance use type: does not use Last use: 08/20/2021 Living arrangements: alone Additional living arrangements comments: SON AND DIL LIVE CLOSE Spiritual care concerns: No Anes - Eval Final PreProcedure Day of Procedure 01/13/22 15:08 Patient weight: obese Heart: regular rate and rhythm Lungs: decreased breath sounds Airway: Mallampati scale class III Neurological: alert and oriented Last oral intake: >/= 8 hours ASA classification: III Emergent: no Anesthetic plan: proceed Anesthesia type and monitoring: general GIVS and standard monitoring Results Review: All pre-operative results and documents have been reviewed as part of the pre-operative evaluation. Informed Consent: The patient's anesthetic plan and its attendant risks and benefits were discussed with the patient/family/POA. Questions were solicited and answers provided to the satisfaction of the patient/family/POA.
[2022-01-14 07:21] VITALS: BP 145/76; PULSE 65; RESP 20; TEMP 36.6; O2SAT 99; BMI 30.5
[2022-01-14] MEDS: LACTATED RINGERS 1,000 ML 150 ML IV CONT (07:33)
[2022-01-14 07:36] LABS: Glucose Point of Care 183 mg/dl (65-105)
--- NOTE | 2022-01-14 07:47 | WPDGICN ---
Assessment and Plan Assessment and plan (1) Dysphagia: Code(s): R13.10 - Dysphagia, unspecified Status: Acute Assessment and Plan: Patient complains of dysphagia. She describes coughing with eating and the sensation of food becoming stuck in her throat. Plan is for EGD to exclude esophageal narrowing. If this is not fruitful the modified barium swallow ENT evaluation may be of some benefit as a follow-up further recommendations will be given after EGD. GI Consult Note Consult date/time: 01/14/22 07:47 Reason for consult: dysphagia HPI: Jen Pandya is a 61 year old female referred by primary care service because of dysphagia. Patient reports having cervical spine surgery in 2017. She states initially she had hoarseness and difficulty swallowing that improved. Over the last 1 year she feels as though there is a pill stuck in her throat. She states on swallowing off time she will cough. She feels as though it may get stuck in her throat. For this reason she is referred for endoscopy to is exclude esophageal narrowing. Her past history is noncontributory she has had no weight loss. Her family history noncontributory. No bleeding as described. Review of Systems Review of Systems: Review of systems noncontributory. REPLACED BY [facility] Past Medical History Medical History (Updated 01/14/22 @ 07:48 by Paresh Peterson MD) Chronic pain syndrome Diabetes type 2, controlled Hyperlipidemia Hypertension Obesity Overweight Surgical History Surgical History History of cervical spinal surgery pin/plates 2016 History of tubal ligation Social History Social History Smoking packs per day: 0.25 Smoking cigarettes per day: 5.0 Years smoked: 45 Smoking pack-years: 11.25 Smoking status: Former smoker Tobacco type: cigarettes Additional smoking assessment comments: PT STATES STARTED SMOKING A COUPLE CIGARETTES A DAY DUE TO STRESS Alcohol intake: never Substance use: never Substance use type: does not use Last use: 08/20/2021 Living arrangements: alone Additional living arrangements comments: SON AND DIL LIVE CLOSE Spiritual care concerns: No Meds Home Medications and Allergies Home Medications Medication Instructions Recorded Confirmed Type amlodipine 5 mg tablet 5 mg PO DAILY 03/17/21 12/28/21 History atorvastatin 20 mg tablet 40 mg PO DAILY 03/17/21 12/28/21 History cyclobenzaprine 10 mg tablet 10 mg PO TID PRN Pain 03/17/21 12/28/21 History diclofenac sodium 75 mg 75 mg PO BID 03/17/21 12/28/21 History tablet,delayed release empagliflozin 25 mg tablet 25 mg PO DAILY 03/17/21 12/28/21 History (Jardiance) glipizide 10 mg tablet 10 mg PO BID 03/17/21 12/28/21 History hydralazine 25 mg tablet 25 mg PO DAILY 03/17/21 12/28/21 History pregabalin 300 mg capsule 300 mg PO BID 03/17/21 12/28/21 History hydrocodone 5 mg-acetaminophen 325 1 tablet PO Q6H PRN pain #7 tabs 08/25/21 12/28/21 Rx mg tablet Allergies Allergy/AdvReac Type Severity Reaction Status Date / Time No Known Allergies Allergy Verified 01/14/22 07:18 Vital Signs Vital Signs - 24 hr 01/14/22 07:21 Temperature 97.8 F Pulse Rate 65 Respiratory Rate 20 Blood Pressure 145/76 H Pulse Oximetry 99 Oxygen Delivery Room Air Exam Narrative: Physical exam reveals patient to be alert. Vital signs stable. HEENT exam is unremarkable. Patient is anicteric. Lungs are clear to auscultation and percussion. Heart is without murmur or extra sounds. Abdominal exam bowel sounds present soft nontender with no organomegaly.
[2022-01-14 08:39] VITALS: BP 94/38; PULSE 62; RESP 22; O2SAT 98
[2022-01-14 08:49] VITALS: BP 104/60; PULSE 57; RESP 16; O2SAT 99
[2022-01-14 08:59] VITALS: BP 115/67; PULSE 62; RESP 20; O2SAT 98
--- NOTE | 2022-01-14 12:48 | SUR.PHASEII ---
Follow up wellness call at 1245. Patient states that the med cable installer repairer helper walked her to her door and she is not having any issues at this time.
== END 2022-01-14 09:20 | disposition home or self-care (01) ==
PROVIDERS: PCP Physician Assistant; Visit Provider Internal Medicine Gastroenterology
PROC: 0DJ08ZZ Inspection of Upper Intestinal Tract, Via Natural or Artificial Opening Endoscopic (ICD-10-PCS; CPT 43235; principal; 2022-01-14 08:30)
DX: R13.10 Dysphagia, unspecified (principal); K22.10 Ulcer of esophagus without bleeding; E11.9 Type 2 diabetes mellitus without complications; I10 Essential (primary) hypertension; E78.5 Hyperlipidemia, unspecified; G89.4 Chronic pain syndrome; Z79.891 Long term (current) use of opiate analgesic; Z79.84 Long term (current) use of oral hypoglycemic drugs; F17.210 Nicotine dependence, cigarettes, uncomplicated; E66.9 Obesity, unspecified; Z68.30 Body mass index [BMI] 30.0-30.9, adult
CPT/HCPCS: 43235; 82948; J2704; J7120

== ENCOUNTER 2022-05-27 08:44 | Outpatient (RCR) | payer MEDICARE, MEDICAID, SELFPAY ==
--- NOTE | 2022-05-27 10:09 | PTOPEVAL1 ---
Assessment and note entered by Annel Baker, PT Evaluation Information Assessment Status Evaluation Diagnosis s/p cervical fusion with removal of previous hardware Onset Feb Subjective Information chronic neck pain; had initial surgery with cervical fusion 2016; since surgery--have lots of pain, arms feel --L hand does not work and cannot hold anything in it; cannot tolerate sitting up longer than 5 minutes; currently is not doing any cooking, kitchen, cleaning, laundry tasks-- due to decreased use of hands Reported Pain Level Pain Score Self Report Additional Pain Score Comments pain of neck and UE's, range of 5-10/10 in past week; neck pain- throb, mont[place], aches, jabbing pain on both sides of neck; L entire arm aches bad and cannot move it; R arm little sleepy, tingling feeling; pain is increased sitting over 5 minutes, walking and any movement; pain is decreased by lying down, taking pain meds-- oxycodone every 6 hours; is not using heat/ice at this time--initially did but not used lately; have not used a cervical brace--discussed neck collar, she does not have, discussed purchase over the counter and PRN use for pain; have headaches, at base of head, have every day, last most of the day; Oswestry self assessment functional score of 58% limitation in activity level. Assessment PT Clinical Summary Jen is s/p cervical surgery--removal of hardware and fusion ~ 8 wk ago. She reports decreased mobility, self care, activity level and sleeping tolerance, with s/s into both arms. Previously she lived alone, but now has family living with her to assist her. Self assessment functional score is 58% limitation in activity. She also has orders for OT evaluation, which has not yet been done. With the evaluation, she was restless, constantly moving and changing position --from sit, supine, side lying positions. There is tightness and spasms throughout entire cervical, thoracic, shoulder areas on R an
--- NOTE | 2022-06-02 12:47 | PCPTNOTE ---
pt called and canceled today's appt due to having a dr appt.
--- NOTE | 2022-06-21 08:01 | PCPTNOTE ---
Patient cancelled her appointments due to moving to [place] to live with her son and will be needing to find a new MD. Notified treating PT of patients situation.
--- NOTE | 2022-06-21 11:18 | PCPTNOTE ---
PHYSICAL THERAPY DISCHARGE 06-21-22 Attending Provider: Konstantin Paula MD Patient:Jen Pandya Date of :1960 Jen had the PT evaluation on 05/27/2022, s/p cervical surgery. She has not returned for treatment. Today, she called and stated she needed to cancel all of her appointments, due to moving out of town, to go live with her son. Therefore (he/she) will be discharged at this time. The goals were not addressed. Thank you for referring this patient to [facility].
== END 2022-08-10 11:44 | disposition home or self-care (01) ==
LOC: ANHPT 08:44
PROVIDERS: PCP Physician Assistant
DX: Z98.1 Arthrodesis status (principal)
CPT/HCPCS: 97110; 97162

== ENCOUNTER 2022-06-17 08:42 | Outpatient (CLI) | payer MEDICARE, MEDICAID, SELFPAY ==
--- NOTE | ~2022-06-17 | MM_ITS ---
EXAMINATION: MM screening [place] [facility] w wilbert HISTORY: Screening TECHNIQUE: Craniocaudal and mediolateral oblique 3-D tomosynthesis images were obtained and synthetic 2-D images were generated. CAD analysis was submitted and interpreted. COMPARISON: 04/14/2022 BREAST PARENCHYMAL COMPOSITION: There are scattered areas of fibroglandular density. FINDINGS: There is no evidence of suspicious mass, calcification, or architectural distortion to sugg est malignancy in either breast. There has been no suspicious interval change. IMPRESSION: 1. No mammographic evidence of malignancy. 2. Recommend routine screening mammography in one year. BI-RADS Category 1: Negative Reviewed, dictated and finalized at location A. LER BUILDER
--- NOTE | ~2022-06-17 | CT_ITS ---
EXAMINATION: CT lung screening DATE: 06/17/2022 09:14 INDICATION: Personal history of nicotine dependence, prior smoker with 12 pack year history TECHNIQUE: Computed tomography (CT) of the chest was performed without intravenous contrast. The dose -length product (DLP) was 131.66 mGy-cm. Automated exposure control and iterative reconstruction tech [employer] were employed. COMPARISON: None FINDINGS: There is a 2 mm nodule in the right upper lobe. The lungs are free of focal airspace opacit ies. No pleural effusion or pneumothorax. There are few endobronchial filling defects in the right up per lobe which likely reflect mucous. No pathologically enlarged thoracic lymph nodes are identified. The heart size is normal. Calcified coronary artery atherosclerosis is noted. There is a 1.3 cm low- attenuation lesion of the left adrenal gland, consistent with an adenoma. There are partially imaged changes of cervicothoracic fusion. There is moderate thoracic spondylosis. IMPRESSION: 1. Lung-RADS category 2: Benign appearance or behavior. Continue annual screening with noncontrast lo w-dose chest CT in 12 months. Reviewed, dictated and finalized at location F. RIALS ASSOCIATE IMPRESSION: 1. Lung-RADS category 2: Benign appearance or behavior. Continue annual screeni ng with noncontrast low-dose chest CT in 12 months.
== END 2022-06-17 08:43 | disposition home or self-care (01) ==
PROVIDERS: PCP Physician Assistant; Visit Provider Physician Assistant
DX: Z12.2 Encounter for screening for malignant neoplasm of respiratory organs (principal); Z12.31 Encounter for screening mammogram for malignant neoplasm of breast; Z87.891 Personal history of nicotine dependence
CPT/HCPCS: 71271; 77063; 77067